=== PATIENT | female | born 1965 | race African-American/Black ===

== ENCOUNTER 2021-03-05 06:33 | Day surgery (SDC) | payer OTHER ==
[2021-03-05] MEDS ORDERED: FERRIC CARBOXYMALTOSE 750 MG in SODIUM CHLORIDE 250 ML IVPB ONE (12:30)
[2021-03-05 14:34] VITALS: TEMP 98.5
[2021-03-05 14:36] VITALS: BP 127/81; PULSE 89
== END 2021-03-05 13:35 | disposition home or self-care (01) ==
LOC: JONCNONCHE 06:33
PROVIDERS: ATTEND Internal Medicine Hematology & Oncology
PROC: 3E033GC Introduction of Other Therapeutic Substance into Peripheral Vein, Percutaneous Approach (ICD-10-PCS; principal; 2021-03-05)
DX: D64.9 Anemia, unspecified (principal)
CPT/HCPCS: 96365; J1439

== ENCOUNTER 2021-03-12 07:49 | Day surgery (SDC) | payer OTHER ==
[2021-03-12] MEDS ORDERED: FERRIC CARBOXYMALTOSE 750 MG in SODIUM CHLORIDE 250 ML IVPB ONE (10:00)
[2021-03-12 17:19] VITALS: TEMP 98.1
[2021-03-12 19:04] VITALS: BP 130/71; PULSE 77
== END 2021-03-12 13:30 | disposition home or self-care (01) ==
LOC: JONCNONCHE 07:49
PROVIDERS: ATTEND Internal Medicine Hematology & Oncology
PROC: 3E033GC Introduction of Other Therapeutic Substance into Peripheral Vein, Percutaneous Approach (ICD-10-PCS; principal; 2021-03-12)
DX: D50.9 Iron deficiency anemia, unspecified (principal)
CPT/HCPCS: 96365; J1439

== ENCOUNTER 2021-04-09 07:16 | Emergency (ER) | payer OTHER ==
[2021-04-09 08:03] VITALS: TEMP 97.8; BMI 26.2
[2021-04-09 09:14] LABS: BASO % 1.2 % (0-2.0); EOS % 5.4 % (0-4.5); HEMATOCRIT 36.8 % (32.4-45.2); HEMOGLOBIN 11.8 GM/dL (10.7-15.3); LYMPH % 24.6 % (8-40); MCH 25.6 pg (25.7-33.7); MCHC 32.2 g/dl (32.0-36.0); MEAN CELL VOLUME 79.7 fl (80-96); MEAN PLT VOLUME 9.1 fl (7.5-11.1); MONO % 7.8 % (3.8-10.2); PLATELET COUNT 336 K/MM3 (134-434); RBC 4.62 M/mm3 (3.60-5.2); RDW 33.9 % (11.6-15.6)
[2021-04-09 09:21] LABS: INR 1.11 (0.83-1.09); PROTHROMBIN TIME (PATIENT) 13.4 SEC (9.7-13.0)
[2021-04-09 09:35] LABS: CHLORIDE 109 mmol/L (98-107); SODIUM 140 mmol/L (136-145)
[2021-04-09 09:36] LABS: CALCIUM 8.8 mg/dL (8.5-10.1)
[2021-04-09 09:37] LABS: ALBUMIN 3.7 g/dl (3.4-5.0); ANION GAP 5 MMOL/L (8-16); BLOOD UREA NITROGEN 8.5 mg/dL (7-18); CO2 26 mmol/L (21-32); GLUCOSE,RANDOM 80 mg/dL (74-106)
[2021-04-09 09:40] LABS: CREATININE 0.6 mg/dL (0.55-1.3); SGOT/AST 18 U/L (15-37); SGPT/ALT 18 U/L (13-61)
[2021-04-09 09:41] LABS: BILIRUBIN,TOTAL 0.6 mg/dL (0.2-1)
[2021-04-09 09:43] LABS: ALK PHOS 85 U/L (45-117)
[2021-04-09 12:37] LABS: EOS % 5.4 % (0-4.5); HEMATOCRIT 37.4 % (32.4-45.2); HEMOGLOBIN 11.8 GM/dL (10.7-15.3); LYMPH % 29.9 % (8-40); MCH 25.4 pg (25.7-33.7); MCHC 31.6 g/dl (32.0-36.0); MEAN CELL VOLUME 80.2 fl (80-96); MEAN PLT VOLUME 8.8 fl (7.5-11.1); MONO % 6.9 % (3.8-10.2); NEUT % 56.8 % (42.8-82.8); PLATELET COUNT 325 K/MM3 (134-434); RBC 4.66 M/mm3 (3.60-5.2); RDW 33.1 % (11.6-15.6); WHITE BLOOD COUNT 6.1 K/mm3 (4.0-10.0)
[2021-04-09 13:34] VITALS: BP 150/87; PULSE 86
== END 2021-04-09 13:34 | disposition home or self-care (01) ==
LOC: JER 07:16
DX: D25.9 Leiomyoma of uterus, unspecified (principal); N93.8 Other specified abnormal uterine and vaginal bleeding
CPT/HCPCS: 36415; 76817-TC; 80053; 84702; 85025; 85610; 85730; 86850; 86900; 86901; 99284-25

== ENCOUNTER 2021-05-27 06:40 | Day surgery (SDC) | payer OTHER ==
[2021-05-27] MEDS ORDERED: IRON SUCROSE INJECTION 200 MG in SODIUM CHLORIDE 90 ML IVPB ONE (15:11)
[2021-05-27 17:07] VITALS: TEMP 98.2
[2021-05-27 17:09] VITALS: BP 120/77; PULSE 71
== END 2021-05-27 17:10 | disposition home or self-care (01) ==
LOC: JONCNONCHE 06:40
PROVIDERS: ATTEND Internal Medicine Hematology & Oncology
PROC: 3E033GC Introduction of Other Therapeutic Substance into Peripheral Vein, Percutaneous Approach (ICD-10-PCS; principal; 2021-05-27)
DX: D50.9 Iron deficiency anemia, unspecified (principal)
CPT/HCPCS: 96365; J1756

== ENCOUNTER 2021-05-31 06:57 | Day surgery (SDC) | payer OTHER ==
[2021-05-31] MEDS ORDERED: IRON SUCROSE INJECTION 200 MG in SODIUM CHLORIDE 100 ML IVPB ONE (13:00)
[2021-05-31 16:04] LABS: CALCIUM 8.3 mg/dL (8.5-10.1)
[2021-05-31 16:05] LABS: ALBUMIN 3.5 g/dl (3.4-5.0); BLOOD UREA NITROGEN 12.6 mg/dL (7-18)
[2021-05-31 16:08] LABS: CREATININE 0.8 mg/dL (0.55-1.3)
[2021-05-31 16:09] LABS: BILIRUBIN,TOTAL 0.3 mg/dL (0.2-1)
[2021-05-31 16:10] LABS: TOT PROT 7.8 g/dl (6.4-8.2)
[2021-05-31 16:34] VITALS: BP 142/85; PULSE 88; TEMP 98.4
== END 2021-05-31 15:00 | disposition home or self-care (01) ==
LOC: JONCNONCHE 06:57
PROVIDERS: ATTEND Internal Medicine Hematology & Oncology
PROC: 3E033GC Introduction of Other Therapeutic Substance into Peripheral Vein, Percutaneous Approach (ICD-10-PCS; principal; 2021-05-31)
DX: D50.9 Iron deficiency anemia, unspecified (principal)
CPT/HCPCS: 36415; 80053; 82728; 83540; 83550; 84703; 96365; J1756

== ENCOUNTER 2021-06-02 07:13 | Day surgery (SDC) | payer OTHER ==
[2021-06-02 14:05] LABS: BASO % 0.6 % (0-2.0); EOS % 2.6 % (0-4.5); HEMATOCRIT 33.4 % (32.4-45.2); HEMOGLOBIN 10.9 GM/dL (10.7-15.3); LYMPH % 22.3 % (8-40); MCH 27.8 pg (25.7-33.7); MCHC 32.7 g/dl (32.0-36.0); MEAN CELL VOLUME 85.1 fl (80-96); MEAN PLT VOLUME 7.1 fl (7.5-11.1); MONO % 5.2 % (3.8-10.2); NEUT % 69.3 % (42.8-82.8); PLATELET COUNT 385 10^3/uL (134-434); RBC 3.92 M/mm3 (3.60-5.2); RDW 14.9 % (11.6-15.6); WHITE BLOOD COUNT 7.4 K/mm3 (4.0-10.0)
[2021-06-02 14:11] LABS: INR 1.11 (0.83-1.09); PROTHROMBIN TIME (PATIENT) 13.6 SEC (9.7-13.0)
[2021-06-02] MEDS ORDERED: IRON SUCROSE INJECTION 200 MG in SODIUM CHLORIDE 100 ML IVPB ONE (14:30)
[2021-06-02 18:18] VITALS: BP 141/89; PULSE 71; TEMP 97.8
== END 2021-06-02 16:15 | disposition home or self-care (01) ==
LOC: JONCNONCHE 07:13
PROVIDERS: ATTEND Internal Medicine Hematology & Oncology
PROC: 3E033GC Introduction of Other Therapeutic Substance into Peripheral Vein, Percutaneous Approach (ICD-10-PCS; principal; 2021-06-02)
DX: D50.9 Iron deficiency anemia, unspecified (principal)
CPT/HCPCS: 36415; 85025; 85610; 85730; 96365; J1756